=== PATIENT | male | born 1970 | race Caucasian/White ===

== ENCOUNTER 2019-12-27 08:01 | Emergency (ER) | payer BC ==
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
[2019-12-27] MEDS ORDERED: FLU VACC QS2020-21(6MOS UP)/PF 60 MCG/0.5 ML SYRINGE IM ONE (09:00)
[2019-12-27] MEDS ORDERED: Acetaminophen/HYDROcodone 325-5 MG Tab PO ONE (09:31)
--- NOTE | 2019-12-28 09:56 | CR ---
PROCEDURE INFORMATION: Exam: XR Chest, 2 Views Exam date and time: 12/27/2019 9:13 AM Age: 49 years old Clinical indication: Cough and fever; Patient HX: Body aches/headache since this morning TECHNIQUE: Imaging protocol: XR of the chest Views: 2 views. COMPARISON: No relevant prior studies available. FINDINGS: Lungs: Mild ground-glass opacification right middle lobe with focal opacification versus ill-defined 10 mm nodule right upper lobe. Pleural space: Normal. Heart/Mediastinum: Normal heart and cardiomediastinal silhouette. Vasculature: Normal pulmonary vessel caliber. Normal aorta. Bones/joints: The bones are intact. IMPRESSION: Right lung opacities suspicious for pneumonia, the right upper lobe entity possibly mimicking a lung nodule and follow-up is therefore recommended. Thank you for allowing us to participate in the care of your patient. Dictated and Authenticated by: Jim Fletcher MD 12/27/2019 10:48 AM Central Time ([place] & [place]) [facility]
== END 2019-12-27 12:00 | disposition home or self-care (01) ==
LOC: JD.ED 08:01
DX: U07.1 COVID-19 (principal)
CPT/HCPCS: 36415; 71046; 80053; 83735; 85007; 85027; 87040; 87635; 87804; 99284; A9270; 99283; U0002

== ENCOUNTER 2019-12-31 16:45 | Emergency (ER) | payer BC ==
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
[2019-12-31] MEDS ORDERED: Dexamethasone 4 MG Tab PO ONE (19:06)
--- NOTE | 2020-01-01 08:36 | CR ---
PROCEDURE INFORMATION: Exam: XR Chest, 1 View Exam date and time: 12/31/2019 5:39 PM Age: 49 years old Clinical indication: Condition or disease; Other: Covid TECHNIQUE: Imaging protocol: XR of the chest Views: 1 view. COMPARISON: DX Chest 2V 12/27/2019 9:13 AM FINDINGS: Lungs: There are faint nonspecific ground-glass opacities in both lungs. Pleural space: There are no pleural effusions present. Heart/Mediastinum: The heart demonstrates moderate diffuse enlargement. The pulmonary arteries are not enlarged. Bones/joints: Unremarkable IMPRESSION: 1. Moderate cardiomegaly. 2. Nonspecific faint ground-glass opacities in the lungs. These appear to be worse since the prior study. Thank you for allowing us to participate in the care of your patient. Dictated and Authenticated by: Sergio Sapp MD 12/31/2019 7:17 PM Central Time ([place] & [place]) [facility]
== END 2019-12-31 19:50 | disposition home or self-care (01) ==
LOC: JD.ED 16:45
DX: U07.1 COVID-19 (principal)
CPT/HCPCS: 36415; 71045; 80053; 82728; 83615; 83735; 85007; 85027; 85379; 85610; 85730; 86140; 99285; J8540; 99283